=== PATIENT | female | born 1975 | race Caucasian/White ===

== ENCOUNTER 2021-09-01 10:50 | Emergency (ER) | payer BC, SELFPAY ==
[2021-09-01 10:59] VITALS: BP 144/92; PULSE 71; RESP 12; TEMP 36.6; O2SAT 98; BMI 25.6
--- NOTE | 2021-09-01 11:17 | W.ED.GENADLT ---
HPI - General Adult General: Chief complaint: Dental/Oral Stated complaint: Tooth pain Time Seen by Provider: 09/01/21 11:02 History of Present Illness: Patient is a 45-year-old female with a history of tooth infection from 1 day who started on antibiotics amoxicillin presenting to the emergency room with complaints of right-sided facial swelling. Patient tells me that she has a dental cavity that she had to be removed on Saturday. Patient called her primary care provider was prescribed amoxicillin 500 mg TID on Saturday. Since then, patient has been compliant with her medicine. However, patient noticed the right upper face has become swollen. Patient denies any fever or chills, trismus, neck swelling, difficulty range of motion of the neck, shortness of breath, or drooling or hoarseness of voice. Onset:5 days ago Duration:5 days Location:home Severity:moderate Associated symptoms: Deny chest pain, dyspnea, nausea, rash, palpitations or vomiting Review of Systems Const: Denies: fever(s) or chills Eyes: Denies: change in vision ENMT: Reports: mouth pain (+R upper dental pain) and other (+R sided facial swelling) Card: Denies: chest pain or palpitations Resp: Denies: dyspnea or non-productive cough GI: Denies: abdominal pain, nausea, vomiting or diarrhea : Denies: dysuria Musc: Denies: extremity pain Skin/Breast: Denies: rash or new lesions Neuro: Denies: weakness in extremities Psych: Reports: other (Normal mood) Ramiro/Lymph: Denies: easy bruising PFS ED PFSH: Medical History Dental cavity Social History Smoking and tobacco status: never smoked Alcohol intake: never Substance/Drug Use: never Physical Exam Const: COMMON NORMALS: alert HENMT: COMMON NORMALS: atraumatic HEAD & SCALP: atraumatic MOUTH: moist mucous membranes not abnormal OTHER: +tooth #6 tenderness to palpation with periapical swelling and gumline swelling, + Right-sided maxillary facial swelling without palpable fluctuanceor any periorbital involvement Eye: COMMON NORMALS: EOMs intact bilaterally and conjunctivae normal CONJUNCTIVA: Yes conjunctivae normal Neck/C-Spine: COMMON NORMALS: full ROM and supple Resp: COMMON NORMALS: normal respiratory effort and clear to auscultation bilaterally AUSCULTATION: clear to auscultation bilaterally Cardio: COMMON NORMALS: regular rate RATE: regular rate GI: COMMON NORMALS: Soft to palpation and non-tender PALPATION: Yes Soft to palpation Extremity: COMMON NORMALS: full ROM Neuro: SENSORIUM/ORIENTATION: Yes alert MOTOR EXAM: No Abnormal motor strength present and Other motor observations present (no focal motor deficits) Psych: COMMON NORMALS: speech normal SPEECH: Yes normal speech MOOD & AFFECT: Yes euthymic mood Course Vital Signs: Vital signs: Vital Signs Temperature 98 F 09/01/21 10:59 Pulse Rate 72 09/01/21 14:18 Respiratory Rate 16 09/01/21 14:18 Blood Pressure 136/82 09/01/21 14:18 Pulse Oximetry 97 09/01/21 14:18 MDM - General Adult Medical Decision Making 45-year-old female presenting to the emergency room for concerns of facial swelling from prior odontogenic infection. On physical exam, patient has tooth #6 tenderness palpation with periapical swelling and pain. Patient was noted to have right-sided maxillary facial swelling. No periorbital involvement. White count of 9.9 today. Patient received Unasyn in the emergency room. Patient has no palpable facial fluctuance at this time amenable to I&D. She tells me that tomorrow she will fly back to [place]. I gave patient strict return to the ER if she has any signs of periorbital involvement, oral airway involvement, worsening swelling, pain vision changes, new neuroloigical findings, headache, fever or chills, or any new or c oncerning complaints. Patient reassures me that she will follow-up with a dentist and her primary care provider when she leaves to go back to [place]. Rx augmentin BID for dental infection, clindamycin TID x 10 days, percocet PRN pain Disposition: Discharge. Patient counseled regarding diagnostic impression, treatment plan. Patient given ED strict return precautions to return for continuation, worsening, or development of new symptoms. Instructed to f/u w/ dentist and primary care regarding symptoms today. Patient verbalized understanding. Lab Data : 09/01/21 12:50 09/01/21 12:50 Laboratory Results WBC 9.9 10^3/uL (4.0-10.0) 09/01/21 12:50 RBC 4.90 10^6/uL (4.1-5.3) 09/01/21 12:50 Hgb 14.6 g/dL (11.5-15.3) 09/01/21 12:50 Hct 43.0 % (37.0-47.0) 09/01/21 12:50 MCV 87.8 fl (81-99) 09/01/21 12:50 MCH 29.8 pg (28.0-34.0) 09/01/21 12:50 MCHC 34.0 g/dL (30.0-36.0) 09/01/21 12:50 RDW 12.4 % (12.1-15.1) 09/01/21 12:50 Plt Count 289 10^3/cmm (130-400) 09/01/21 12:50 MPV 10.4 fL (7.4-10.4) 09/01/21 12:50 Neut % (Auto) 74.7 % 09/01/21 12:50 Lymph % (Auto) 16.3 % 09/01/21 12:50 Bertie % (Auto) 7.4 % 09/01/21 12:50 Eos % (Auto) 0.6 % 09/01/21 12:50 Baso % (Auto) 0.8 % 09/01/21 12:50 Neut # (Auto) 7.41 10^3/uL (1.8-7.7) 09/01/21 12:50 Lymph # (Auto) 1.6 10^3/uL (0.8-4.8) 09/01/21 12:50 Bertie # (Auto) 0.7 10^3/uL (0.2-0.9) 09/01/21 12:50 Eos # (Auto) 0.1 10^3/uL (0.0-0.8) 09/01/21 12:50 Baso # (Auto) 0.1 10^3/uL (0.0-0.1) 09/01/21 12:50 Nucleated RBC % (auto) 0 % 09/01/21 12:50 Nucleated RBCs # 0.0 /100WBC 09/01/21 12:50 Sodium 139 mmol/L (136-145) 09/01/21 12:50 Potassium 3.9 mmol/L (3.5-5.1) 09/01/21 12:50 Chloride 102 mmol/L (98-107) 09/01/21 12:50 Carbon Dioxide 22 mmol/L (22-29) 09/01/21 12:50 Anion Gap 18.9 (5-19) 09/01/21 12:50 BUN 11 mg/dL (6-20) 09/01/21 12:50 Creatinine 0.9 mg/dL (0.5-0.9) 09/01/21 12:50 GFR Calculation 67.4 mL/min (90-130) L 09/01/21 12:50 Glucose 80 mg/dL (65-115) 09/01/21 12:50 Calculated Osmolality 286 mOsm/kg (285-295) 09/01/21 12:50 Calcium 9.9 mg/dL (8.5-10.5) 09/01/21 12:50 Discharge Plan Discharge Patient Disposition: Home Clinical Impression: Cellulitis, Dental abscess Condition: Stable Prescriptions: New amoxicillin-pot clavulanate 875-125 mg tablet 1 tab PO BID 10 Days Qty: 20 0RF clindamycin HCl 300 mg capsule 300 mg PO Q8H 10 Days Qty: 30 0RF Percocet 5-325 mg tablet 1 tab PO Q8H PRN (Reason: pain) Qty: 9 0RF No Action amoxicillin 500 mg Capsule 500 mg PO TID 0RF potassium chloride 10 mEq capsule, extended release 10 meq PO DAILY 0RF lisinopril 20 mg tablet 20 mg PO DAILY 0RF amlodipine 5 mg tablet 5 mg PO DAILY 0RF estradiol 1 mg tablet 1 mg PO DAILY 0RF cyanocobalamin (vitamin B-12) 1,000 mcg/mL solution 1,000 mcg IM Q30D 0RF hydrochlorothiazide 12.5 mg capsule 12.5 mg PO DAILY 0RF Vitamin C 100 mg Tablet 100 mg PO DAILY 0RF vitamin B complex Tablet 1 tab PO DAILY 0RF Vitamin D3 10 mcg (400 unit) Tablet 10 mcg PO DAILY 0RF Discharge Orders: Discharge ED (Routine); Ordered 09/01/21 Ordered By: Edwina Osman Referrals: Erick Sarabia [Primary Care Provider] - Discharge Diet: Advance as tolerated Discharge Activity: Increase activity as tolerated Patient Instructions: Dental Abscess (ED) Activity Restrictions/Additional Instructions: Come back to emergency room any fever chills, difficulty breathing, worsening facial swelling, periorbital swelling or any new concerning complaints. 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
[2021-09-01] MEDS: ampicillin-sulbactam 3 GM in sodium chloride 0.9% (plus) 50 ML IV (12:57)
[2021-09-01 12:58] LABS: Basophils # 0.1 10^3/uL (0.0-0.1); Basophils % 0.8 %; Eosinophils # 0.1 10^3/uL (0.0-0.8); Eosinophils % 0.6 %; Hemoglobin 14.6 g/dL (11.5-15.3); Lymphocytes # 1.6 10^3/uL (0.8-4.8); Lymphocytes % 16.3 %; Mean Corpuscular Hemoglobin 29.8 pg (28.0-34.0); Mean Corpuscular Volume 87.8 fl (81-99); Mean Platelet Volume 10.4 fL (7.4-10.4); Monocytes # 0.7 10^3/uL (0.2-0.9); Monocytes % 7.4 %; Neutrophils # 7.41 10^3/uL (1.8-7.7); Neutrophils % 74.7 %; Nucleated Red Blood Cells % 0 %; Platelet Count 289 10^3/cmm (130-400); Red Cell Distribution Width 12.4 % (12.1-15.1); White Blood Count 9.9 10^3/uL (4.0-10.0)
[2021-09-01 13:18] LABS: Anion Gap 18.9 (5-19); Blood Urea Nitrogen 11 mg/dL (6-20); Calcium 9.9 mg/dL (8.5-10.5); Carbon Dioxide 22 mmol/L (22-29); Chloride 102 mmol/L (98-107); Glomerular Filtration Rate 67.4 mL/min (90-130); Glucose 80 mg/dL (65-115); Osmolality Calculated 286 mOsm/kg (285-295); Potassium 3.9 mmol/L (3.5-5.1); Sodium 139 mmol/L (136-145)
[2021-09-01 14:15] VITALS: RESP 18; O2SAT 98
[2021-09-01] MEDS: oxyCODONE-APAP 5-325 mg Tablet 1 TAB PO (14:15)
[2021-09-01 14:18] VITALS: BP 136/82; PULSE 72; RESP 16; O2SAT 97
== END 2021-09-01 14:22 | disposition home or self-care (01) ==
PROVIDERS: Emergency Provider Emergency Medicine; PCP Physician Assistant Medical
DX: K12.2 Cellulitis and abscess of mouth (principal); K04.7 Periapical abscess without sinus
CPT/HCPCS: 80048; 85025; 96365; 99284; J0295

== ENCOUNTER 2023-05-09 12:28 | Outpatient (CLI) | payer OTHER, SELFPAY ==
--- NOTE | 2023-05-09 12:55 | MM_ITS ---
WS: [id number] BILATERAL 3D TOMOSYNTHESIS DIGITAL DIAGNOSTIC MAMMOGRAPHY WITH CAD CLINICAL INFORMATION: RIGHT BREAST MASS HISTORY: Palpable lump RIGHT COMPARISON: 2021 TECHNIQUE: Bilateral CC, MLO, and ML views. FINDINGS: The breasts are composed of heterogeneous fibroglandular density, which can limit the detection of sm all underlying mass lesions. Palpable marker overlying the RIGHT lower inner RIGHT breast. No definit e underlying parenchymal abnormalities. Ultrasound of this area is pending. LEFT breast is unchanged compared to previous. ULTRASOUND BREAST RIGHT TECHNIQUE: Ultrasound right breast focused area of concern. CLINICAL INFORMATION: RIGHT BREAST MASS FINDINGS: Ultrasound RIGHT breast at the 5 o'clock position in the area of interest. Normal underlying parenchy mal tissue. No cystic or solid lesions. No suspicious lesions to target for biopsy. IMPRESSION: MM/[place] [id number] BI-RADS: 2-Benign FOLLOW UP: 1 Year Follow-up Recommend return to annual screening mammography.
== END 2023-05-09 12:29 | disposition home or self-care (01) ==
PROVIDERS: PCP Physician Assistant Medical; Visit Provider Nurse Practitioner Family
DX: N63.10 Unspecified lump in the right breast, unspecified quadrant (principal); R92.321 Mammographic fibroglandular density, right breast
CPT/HCPCS: 76642; 77062; G0279

== ENCOUNTER 2023-08-11 21:32 | Emergency (ER) | payer OTHER, SELFPAY ==
[2023-08-11 21:49] VITALS: BP 141/88; PULSE 59; RESP 18; TEMP 36.6; O2SAT 100; BMI 24.4
--- NOTE | 2023-08-11 22:50 | W.ED.ABDPA2 ---
HPI - Abdominal Pain General: Chief Complaint: Abdominal Pain Stated Complaint: Rt Side Pain Time Seen by Provider: 08/11/23 22:46 History of Present Illness: 47-year-old female comes in today with complaints of right flank pain radiating around to the front abdomen starting about 3 hours prior to arrival. Patient states that she had eaten about 15 minutes before the pain started. Patient has a history of a hysterectomy and appendectomy. Patient does have alpha gal syndrome. Patient has a history of high blood pressure. Review of Systems General: Reports: 10 or more systems reviewed and unremarkable except in HPI and below GI: Reports: abdominal pain PFS ED PFSH: Medical History Dental cavity Social History Smoking and tobacco/nicotine status: never used tobacco/nicotine Alcohol intake: never Substance/Drug Use: never Physical Exam Const: COMMON NORMALS: alert HENMT: COMMON NORMALS: normocephalic HEAD & SCALP: normocephalic Neck/C-Spine: COMMON NORMALS: full ROM Resp: COMMON NORMALS: normal respiratory effort and clear to auscultation bilaterally AUSCULTATION: clear to auscultation bilaterally Cardio: COMMON NORMALS: regular rate and regular rhythm RATE: regular rate RHYTHM: regular rhythm GI: COMMON NORMALS: Soft to palpation PALPATION: Yes Soft to palpation and Yes Tenderness to palpation present (GI) Details: RUQ : COMMON NORMALS: Yes no CVA tenderness BLADDER/KIDNEY EXAM: Yes no CVA tenderness Back/Pelvis: COMMON NORMALS: no CVA tenderness Extremity: COMMON NORMALS: normal to inspection Neuro: SENSORIUM/ORIENTATION: Yes alert Psych: COMMON NORMALS: cooperative Skin: COMMON NORMALS: turgor normal GENERAL SKIN EXAM: turgor normal Course Vital Signs: Vital signs: Vital Signs Temperature 97.9 F 08/11/23 21:49 Pulse Rate 59 L 08/11/23 21:49 Respiratory Rate 18 08/11/23 21:49 Blood Pressure 141/88 08/11/23 21:49 Pulse Oximetry 100 08/11/23 21:49 Oxygen Delivery Me thod Room Air 08/11/23 21:49 MDM - Abdominal Pain Medical Decision Making 47-year-old female comes in today with complaints of right upper quadrant abdominal pain radiating around to the back. On exam pupils are equal and reactive. Lungs are clear to auscultation. Abdomen soft nontender. Skin is warm and dry. Vital signs are normal except for some elevated blood pressure. Patient appears in pain. Differential diagnosis includes but not limited to pancreatitis, cholecystitis, gastritis, constipation, renal colic, gastroenteritis. CBC had a white count of 5.24, sodium was 142, potassium 3.1, urine had positive nitrates increased white blood cells and positive bacteria. CT of the abdomen pelvis was unremarkable. Reviewed exam with patient with recommendations for treatment for kidney infection. Encourage fluids rest and follow-up with primary care for further instructions. Return to ED for new concerns. Patient reported understanding agreed to plan. Lab Data 08/11/23 22:44 08/11/23 22:44 Labs/Radiology: Radiology Impressions Abdomen/Pelvis CT 08/11/23 22:52 IMPRESSION: No acute findings. Laboratory Results WBC 5.24 10^3/uL (3.29-11.43) 08/11/23 22:44 RBC 4.17 10^6/uL (3.85-5.65) 08/11/23 22:44 Hgb 13.00 g/dL (11.27-16.99) 08/11/23 22:44 Hct 37.6 % (36-47) 08/11/23 22:44 MCV 90.2 fl (85-98) 08/11/23 22:44 MCH 31.2 pg (27-33) 08/11/23 22:44 MCHC 34.6 g/dL (30-55) 08/11/23 22:44 RDW 12.3 % (12.1-15.1) 08/11/23 22:44 Plt Count 242 10^3/cmm (157-399) 08/11/23 22:44 MPV 11.0 fL (7.4-10.4) H 08/11/23 22:44 Neut % (Auto) 42.8 % 08/11/23 22:44 Lymph % (Auto) 45.6 % 08/11/23 22:44 [place] % (Auto) 8.6 % 08/11/23 22:44 Eos % (Auto) 1.5 % 08/11/23 22:44 Baso % (Auto) 1.3 % 05/26/24 22:44 Neut # (Auto) 2.24 10^3/uL (1.8-7.7) 08/11/23 22:44 Lymph # (Auto) 2.4 10^3/uL (0.8-4.8) 08/11/23 22:44 [place] # (Auto) 0.5 10^3/uL (0.2-0.9) 08/11/23 22:44 Eos # (Auto) 0.1 10^3/uL (0.0-0.8) 08/11/23 22:44 Baso # (Auto) 0.1 10^3/uL (0.0-0.1) 08/11/23:44 Nucleated RBC % (auto) 0 % 08/11/23: Nucleated RBCs # 0.0 /100WBC 08/11/23 22:44 Sodium 142 mmol/L (136-145) 08/11/23 22:44 Potassium 3.1 mmol/L (3.5-5.1) L 08/11/23 22:44 Chloride 108 mmol/L (98-107) H 08/11/23 22:44 Carbon Dioxide 22 mmol/L (22-29) 08/11/23 22:44 Anion Gap 15.1 (5-19) 08/11/23 22:44 BUN 12 mg/dL (6-20) 08/11/23 22:44 Creatinine 0.8 mg/dL (0.5-0.9) 08/11/23 22:44 GFR Calculation 76.6 mL/min (90-130) L 08/11/23 22:44 Glucose 75 mg/dL (65-115) 08/11/23 22:44 Calculated Osmolality 292 mOsm/kg (285-295) 08/11/23 22:44 Calcium 8.9 mg/dL (8.5-10.5) 08/11/23 22:44 Total Bilirubin 0.2 mg/dL (0.15-1.2) 08/11/23 22:44 AST 16 U/L (0-32) 08/11/23 22:44 ALT 13 U/L (0-33) 08/11/23 22:44 Alkaline Phosphatase 79 U/L (35-105) 08/11/23 22:44 Total Protein 6.9 g/dL (6.6-8.7) 08/11/23 22:44 Albumin 4.0 g/dL (3.5-5.2) 08/11/23 22:44 Globulin 2.9 g/dL (1.3-4.6) 08/11/23 22:44 Lipase 49 U/L (13-60) 08/11/23 22:44 Urine Color [place] (Yellow) A 08/12/23 00:25 Urine Appearance Clear (CLEAR) 08/12/23 00:25 Urine pH 9 (5-7) H 08/12/23 00:25 Ur Specific [place] 1.010 (1.005-1.030) 08/12/23 00:25 Urine Protein 1+ (Negative) H 08/12/23 00:25 Urine Glucose (UA) Norm (Normal) 08/12/23 00:25 Urine Ketones Negative (Negative) 08/12/23 00:25 Urine Blood Neg (Negative) 08/12/23 00:25 Urine Nitrate Positive (Negative) H 08/12/23 00:25 Urine Bilirubin 1+ (Negative) H 08/12/23 00:25 Prot Sulfosalicylic Acd Positive (Negative) 08/12/23 00:25 Urine Urobilinogen 1 mg/dL (Negative) H 08/12/23 00:25 Ur Leukocyte Esterase Trace (Negative) H 08/12/23 00:25 Urine RBC 0-4 /hpf (0-2) H 08/12/23 00:25 Urine WBC 5-10 /hpf (0-5) H 08/12/23 00:25 Ur Squamous Epith Cells 0-4 /hpf (0-5) H 08/12/23 00:25 Amorphous Sediment Trace /hpf 08/12/23 00:25 Urine Bacteria 1+ /hpf (NONE) H 08/12/23 00:25 Urine Mucus Trace /hpf 08/12/23 00:25 All radiology interpretation(s) finalized by discharge Discharge Plan Discharge Patient Disposition: Home Clinical Impression: Infection, kidney Condition: Stable Prescriptions: New cefdinir 250 mg/5 mL suspension for reconstitution 300 mg PO BID 5 Days Qty: 60 0RF No Action amoxicillin 500 mg Capsule 500 mg PO TID potassium chloride 10 mEq capsule, extended release 10 meq PO DAILY lisinopril 20 mg tablet 20 mg PO DAILY amlodipine 5 mg tablet 5 mg PO DAILY estradiol 1 mg tablet 1 mg PO DAILY cyanocobalamin (vitamin B-12) 1,000 mcg/mL solution 1,000 mcg IM Q30D hydrochlorothiazide 12.5 mg capsule 12.5 mg PO DAILY Vitamin C 100 mg Tablet 100 mg PO DAILY vitamin B complex Tablet 1 tab PO DAILY Vitamin D3 10 mcg (400 unit) Tablet 10 mcg PO DAILY Percocet 5-325 mg tablet 1 tab PO Q8H PRN (Reason: pain) Qty: 9 0RF Discharge Orders: Discharge ED (Routine); Ordered 08/12/23 Ordered By: Alexsander Ramachandran Referrals: Joellen Yuan NP [Primary Care Provider] - Discharge Diet: Usual diet Discharge Activity: Increase activity as tolerated Patient Instructions: Kidney Infection (ED) Activity Restrictions/Additional Instructions: Drink plenty water and fluids. Activity as tolerated. Take antibiotics as directed. Follow-up with primary care for further instructions. 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
[2023-08-11 22:52] LABS: Basophils # 0.1 10^3/uL (0.0-0.1); Basophils % 1.3 %; Eosinophils # 0.1 10^3/uL (0.0-0.8); Eosinophils % 1.5 %; Hematocrit 37.6 % (36-47); Lymphocytes # 2.4 10^3/uL (0.8-4.8); Lymphocytes % 45.6 %; Mean Corpuscular HGB Conc 34.6 g/dL (30-55); Mean Corpuscular Hemoglobin 31.2 pg (27-33); Mean Corpuscular Volume 90.2 fl (85-98); Monocytes # 0.5 10^3/uL (0.2-0.9); Monocytes % 8.6 %; Neutrophils # 2.24 10^3/uL (1.8-7.7); Neutrophils % 42.8 %; Nucleated Red Blood Cells % 0 %; Platelet Count 242 10^3/cmm (157-399); Red Blood Count 4.17 10^6/uL (3.85-5.65); Red Cell Distribution Width 12.3 % (12.1-15.1); White Blood Count 5.24 10^3/uL (3.29-11.43)
--- NOTE | 2023-08-11 22:52 | CTR_ITS ---
PROCEDURE INFORMATION: Exam: CT Abdomen And Pelvis With Contrast Exam date and time: 08/12/2023 12:04 AM Age: 47 years old Clinical indication: Abdominal pain; Localized; Right; Prior surgery; Surgery date: 6+ months; Surgery type: Appy. Hysterectomy. Patient HX: C/O RT sided abd pain with nausea; Additional info: Abd pain, ruq, RT flank TECHNIQUE: Imaging protocol: Computed tomography of the abdomen and pelvis with contrast. Radiation optimization: All CT scans at this facility use at least one of these dose optimization techniques: automated exposure control; mA and/or kV adjustment per patient size (includes targeted exams where dose is matched to clinical indication); or iterative reconstruction. Contrast material: OMNI 350; Contrast volume: 100 ml; Contrast route: INTRAVENOUS (IV); COMPARISON: No relevant prior studies available. RADIATION DOSE METRICS: Total DLP (mGy-cm): 404.82 FINDINGS: Liver: Normal. No mass. Gallbladder and bile ducts: Normal. No calcified stones. No ductal dilation. Pancreas: Normal. No ductal dilation. Spleen: Normal. No splenomegaly. Adrenal glands: Normal enhancement pattern. No mass. It for stones. 8 mm diameter simple cyst medial interpolar left kidney. No specific follow-up imaging recommendations. Kidneys and ureters: Normal. No hydronephrosis. Stomach and bowel: Unremarkable. No obstruction. No mucosal thickening. Appendix: No evidence of appendicitis. Intraperitoneal space: Unremarkable. No free air. No significant fluid collection. Vasculature: Unremarkable. No abdominal aortic aneurysm. Lymph nodes: Unremarkable. No enlarged lymph nodes. Urinary bladder: Unremarkable as visualized. Reproductive: Hysterectomy. Bones/joints: Unremarkable. No acute fracture. Soft tissues: Unremarkable. CT/CT abdomen pelvis w con* [id number] IMPRESSION: No acute findings.
[2023-08-11 23:08] LABS: Alanine Aminotransferase 13 U/L (0-33); Alkaline Phosphatase 79 U/L (35-105); Anion Gap 15.1 (5-19); Aspartate Amino Transferase 16 U/L (0-32); Blood Urea Nitrogen 12 mg/dL (6-20); Calcium 8.9 mg/dL (8.5-10.5); Carbon Dioxide 22 mmol/L (22-29); Chloride 108 mmol/L (98-107); Creatinine Clr Calc Pharmacy 82.6411; Globulin 2.9 g/dL (1.3-4.6); Glomerular Filtration Rate 76.6 mL/min (90-130); Glucose 75 mg/dL (65-115); Lipase 49 U/L (13-60); Osmolality Calculated 292 mOsm/kg (285-295); Potassium 3.1 mmol/L (3.5-5.1); Sodium 142 mmol/L (136-145); Total Bilirubin 0.2 mg/dL (0.15-1.2); Total Protein 6.9 g/dL (6.6-8.7)
[2023-08-11] MEDS: ketorolac 30 mg/mL INJ 15 MG IVP (23:10)
[2023-08-11] MEDS: sodium chloride 0.9% 1,000 ML 999 ML IV (23:11)
[2023-08-11] MEDS: ondansetron 2 mg/ML SDV 2 mL 4 MG IVP (23:11)
[2023-08-12] MEDS: iohexol 350 mg/mL 500 mL Btl (per mL) IV (00:03)
[2023-08-12 01:20] LABS: Add Urine Microscopic? YES; Amorphous Sediment Urine TRACE /hpf; Bacteria Urine 1+ /hpf; Bilirubin Urine 1+ (Negative); Blood Urine Neg (Negative); Glucose Urine UA Norm (Normal); Ketones Urine Negative (Negative); Leukocyte Esterase Urine Trace (Negative); Mucus Urine TRACE /hpf; Nitrate Urine Positive (Negative); Protein Urine 1+ (Negative); RBC Urine 0-4 /hpf (0-2); Squamous Epithelial Cell Urine 0-4 /hpf (0-5); Sulfosalicylic Acid Urine Positive (Negative); Urine Appearance Clear (CLEAR); Urine Color Orange (Yellow); Urobilinogen Urine 1 mg/dL (Negative); pH Urine 9 (5-7)
[2023-08-12] MEDS: cefTRIAXone 1,000 MG in sodium chloride 0.9% (plus) 50 ML 100 MG IV (01:44)
[2023-08-12 02:00] VITALS: BP 147/92; PULSE 54; O2SAT 99
[2023-08-12 02:15] VITALS: BP 147/92; PULSE 54; O2SAT 99
== END 2023-08-12 02:15 | disposition home or self-care (01) ==
PROVIDERS: Emergency Medicine; Emergency Provider Nurse Practitioner Family; PCP Nurse Practitioner Family
DX: N15.9 Renal tubulo-interstitial disease, unspecified (principal)
CPT/HCPCS: 36415; 74177; 80053; 81001; 83690; 85025; 96361; 96374; 96375; 99285; J0696; J1885; J2405; J7030; Q9967

== ENCOUNTER 2023-09-22 17:35 | Emergency (ER) | payer OTHER, SELFPAY ==
[2023-09-22 17:50] VITALS: BP 134/92; PULSE 85; RESP 14; TEMP 36.6; O2SAT 98
--- NOTE | 2023-09-22 18:11 | XRR_ITS ---
PROCEDURE INFORMATION: Exam: XR Thoracic Spine Exam date and time: 09/22/2023 6:15 PM Age: 47 years old Clinical indication: Injury or trauma; Patient HX: Lt ankle/mid/low back/pelvic pain post fall TECHNIQUE: Imaging protocol: Radiologic exam of the thoracic spine. Views: 3 views. COMPARISON: CR XR lumbar spine 2-3V* [id number] 09/22/2023 6:15 PM FINDINGS: Bones/joints: Vertebral heights and alignments are grossly maintained without evidence of acute fracture or subluxation. Detailed evaluation is limited by overlapping structures. Pedicles are grossly symmetric. Soft tissues: Grossly unremarkable. XR/XR thoracic spine 3V* [id number] IMPRESSION: 1. No evidence of fracture or subluxation of the thoracic spine. If there is ongoing clinical concern, consider correlation with CT.
--- NOTE | 2023-09-22 18:11 | XRR_ITS ---
PROCEDURE INFORMATION: Exam: XR Pelvis Exam date and time: 09/22/2023 6:15 PM Age: 47 years old Clinical indication: Injury or trauma; Patient HX: -lt ankle/mid/low back/pelvic pain post fall; Additional info: -lt ankle/mid/low back/pelvic pain post fall TECHNIQUE: Imaging protocol: Radiologic exam of the pelvis. Views: 1 or 2 view. COMPARISON: CT abdomen pelvis w con* [id number] 08/12/2023 12:04 AM FINDINGS: Bones/joints: Pelvic ring and both hips are grossly intact without evidence of fracture. Sacrum and coccyx are partially obscured by bowel gas/stool. Soft tissues: Grossly unremarkable. XR/XR pelvis 1-2V* [id number] IMPRESSION: 1. Pelvic ring is grossly intact.
--- NOTE | 2023-09-22 18:11 | XRR_ITS ---
PROCEDURE INFORMATION: Exam: XR Lumbosacral Spine Exam date and time: 09/22/2023 6:15 PM Age: 47 years old Clinical indication: Injury or trauma; Patient HX: -lt ankle/mid/low back/pelvic pain post fall; Additional info: -lt ankle/mid/low back/pelvic pain post fall TECHNIQUE: Imaging protocol: Radiologic exam of the lumbosacral spine. Views: 2 or 3 views. COMPARISON: CR XR pelvis 1-2V* [id number] 09/22/2023 6:15 PM FINDINGS: Bones/joints: No evidence of acute fracture or subluxation. Mild-moderate multilevel spondylosis of the lumbar spine with facet arthrosis and osteophytosis. The sacrum and coccyx are partially obscured by bowel gas/stool. Soft tissues: Grossly unremarkable. XR/XR lumbar spine 2-3V* [id number] IMPRESSION: 1. No evidence of acute fracture or subluxation of the lumbar spine. If there is ongoing clinical concern, consider correlation with CT.
--- NOTE | 2023-09-22 18:11 | XRR_ITS ---
PROCEDURE INFORMATION: Exam: XR Left Ankle Exam date and time: 09/22/2023 6:15 PM Age: 47 years old Clinical indication: Injury or trauma; Patient HX: Lt ankle/mid/low back/pelvic pain post fall TECHNIQUE: Imaging protocol: Radiologic exam of the left ankle. Views: 3 or more views. COMPARISON: No relevant prior studies available. FINDINGS: Bones/joints: Ankle mortise is intact without evidence of acute fracture or subluxation. Soft tissues: No gross soft tissue abnormality. XR/XR ankle LT min 3V* [id number] IMPRESSION: 1. No evidence of acute fracture or subluxation.
--- NOTE | 2023-09-22 18:15 | ED_ITS ---
HPI - Back Pain/Injury General: Chief Complaint: Back Pain/Injury Stated Complaint: fall/ low back pain Time Seen by Provider: 09/22/23 17:56 History of Present Illness: 47-year-old female with a reported fall on the stairs on Saturday. Patient reports persistent mid to low back pain. Patient also reports pain in the pelvis and left ankle. Patient appears in mild to moderate pain. Respirations are even. Patient takes hormone replacement therapy, and vitamin D. Patient reports no chronic medical problems. Review of Systems General: Reports: 10 or more systems reviewed and unremarkable except in HPI and below Musc: Reports: back pain [facility] ED PFSH: Medical History Dental cavity Social History Smoking and tobacco/nicotine status: never used tobacco/nicotine Alcohol intake: never Substance/Drug Use: never Physical Exam Const: COMMON NORMALS: alert HENMT: COMMON NORMALS: normocephalic HEAD & SCALP: normocephalic Neck/C-Spine: COMMON NORMALS: full ROM Chest: COMMONS NORMALS: normal inspection of the chest Resp: COMMON NORMALS: normal respiratory effort and clear to auscultation bilaterally AUSCULTATION: clear to auscultation bilaterally Cardio: COMMON NORMALS: regular rate and regular rhythm RATE: regular rate RHYTHM: regular rhythm GI: COMMON NORMALS: non-tender Back/Pelvis: THORACIC SPINE/UPPER BACK: Yes thoracic spinal tenderness T-spine tenderness location: T10 (Approximately) LUMBAR SPINE/LOWER BACK: Yes lumbar spinal tenderness Lumbar spinal tenderness location: L1 and L4 Neuro: SENSORIUM/ORIENTATION: Yes alert Skin: COMMON NORMALS: no rashes or lesions noted GENERAL SKIN EXAM: no rashes or lesions noted Course Vital Signs: Vital signs: Vital Signs Temperature 97.9 F 09/22/23 17:50 Pulse Rate 79 09/22/23 19:35 Respiratory Rate 16 09/22/23 19:35 Blood Pressure 126/84 09/22/23 19:35 Pulse Oximetry 98 09/22/23 19:35 MDM - Back Pain/Injury Medical Decision Making 47-year-old female comes in today with back pain, pelvis pain, and left ankle pain. Patient follow-up blood the stairs. Still when she slipped. Patient is weightbearing to the ankle. Patient reports most of her pain is in her mid back. Patient has tenderness along the upper lumbar and thoracic spine along with the lower lumbar. Differential diagnosis includes fracture, intervertebral disc disease, facet arthropathy, contusion. Patient was given 30 mg of ketorolac IM with improvement of symptoms pain. X-rays of the ankle, pelvis, lumbar spine, and thoracic spine were negative for any acute fractures. Reviewed exam with patient with recommendations for treatment for back injury. Patient reported understanding agreed to plan. Labs Radiology Impressions Ankle X-Ray 09/22/23 18:11 IMPRESSION: 1. No evidence of acute fracture or subluxation. Lumbar Spine X-Ray 09/22/23 18:11 IMPRESSION: 1. No evidence of acute fracture or subluxation of the lumbar spine. If there is ongoing clinical concern, consider correlation with CT. Pelvis X-Ray 09/22/23 18:11 IMPRESSION: 1. Pelvic ring is grossly intact. Thoracic Spine X-Ray 09/22/23 18:11 IMPRESSION: 1. No evidence of fracture or subluxation of the thoracic spine. If there is ongoing clinical concern, consider correlation with CT. All radiology interpretation(s) finalized by discharge Discharge Plan Discharge Patient Disposition: Home Clinical Impression: Accidental fall on or from other stairs or steps Back pain Qualifiers: Back pain location: back pain in unspecified location Chronicity: acute Back pain laterality: unspecified Qualified Code(s): M54.9 - Dorsalgia, unspecified Condition: Stable Prescriptions: New ketorolac 10 mg tablet 10 mg PO Q6H PRN (Reason: pain) 5 Days Qty: 14 0RF cyclobenzaprine 5 mg tablet 5 mg PO TID PRN (Reason: muscle spasm) Qty: 14 0RF No Action amoxicillin 500 mg Capsule 500 mg PO TID potassium chloride 10 mEq capsule, extended release 10 meq PO DAILY lisinopril 20 mg tablet 20 mg PO DAILY amlodipine 5 mg tablet 5 mg PO DAILY estradiol 1 mg tablet 1 mg PO DAILY cyanocobalamin (vitamin B-12) 1,000 mcg/mL solution 1,000 mcg IM Q30D hydrochlorothiazide 12.5 mg capsule 12.5 mg PO DAILY Vitamin C 100 mg Tablet 100 mg PO DAILY vitamin B complex Tablet 1 tab PO DAILY Vitamin D3 10 mcg (400 unit) Tablet 10 mcg PO DAILY Percocet 5-325 mg tablet 1 tab PO Q8H PRN (Reason: pain) Qty: 9 0RF Discharge Orders: Discharge ED (Routine); Ordered 09/22/23 Ordered By: Alexsander Ramachandran Referrals: Joellen Yuan NP [Primary Care Provider] - Discharge Diet: Usual diet Discharge Activity: Increase activity as tolerated Patient Instructions: Back Pain (ED) Activity Restrictions/Additional Instructions: Activity as tolerated. Gentle stretching and range of motion exercises. Use ice or heat to help with pain. Take ketorolac 10 mg every 6 hours as needed for pain. Do not use ibuprofen or naproxen with ketorolac. You may however use acetaminophen for further pain relief. Use cyclobenzaprine as needed for muscle spasms. Follow-up with primary care for further instructions for persistent symptoms. Return to ED for new concerns. Coding Level of Care Code ED Allied Health Instructor for Alonso Cheung
[2023-09-22] MEDS: ketorolac 30 mg/mL INJ IM (19:00)
[2023-09-22 19:35] VITALS: BP 126/84; PULSE 79; RESP 16; O2SAT 98
== END 2023-09-22 19:36 | disposition home or self-care (01) ==
PROVIDERS: Emergency Provider Nurse Practitioner Family; PCP Nurse Practitioner Family
DX: M54.50 Low back pain, unspecified (principal); W10.8XXA Fall (on) (from) other stairs and steps, initial encounter
CPT/HCPCS: 72072; 72100; 72170; 73610; 96372; 99284; J1885

== ENCOUNTER 2024-05-22 10:33 | Outpatient (CLI) | payer BC, SELFPAY ==
--- NOTE | 2024-05-22 10:35 | MM_ITS ---
WS: [id number] BILATERAL SCREENING DIGITAL TOMOSYNTHESIS MAMMOGRAM WITH CAD HISTORY: SCREENING COMPARISON: 05/09/2023, 01/05/2022 Bilateral CC and MLO views with tomosynthesis and synthetic mammography submitted. Computer aided detection analyzed. Breast composition: The breasts are heterogeneously dense, which may obscure small masses. No suspicious masses, microcalcifications or architectural distortion. MM/MM scr BI tomosynthesis [id number] IMPRESSION: BI-RADS: 1 - Negative FOLLOW UP: 1 Year Follow-up
== END 2024-05-22 10:34 | disposition home or self-care (01) ==
PROVIDERS: PCP Nurse Practitioner Family; Visit Provider Nurse Practitioner
DX: Z12.31 Encounter for screening mammogram for malignant neoplasm of breast (principal); R92.333 Mammographic heterogeneous density, bilateral breasts
CPT/HCPCS: 77063; 77067

== ENCOUNTER → 2024-07-02 07:55 | Outpatient (BNVA) | payer BC, SELFPAY | PROVIDERS: PCP Nurse Practitioner Family; Visit Provider Orthopaedic Surgery | DX: S63.501A Unspecified sprain of right wrist, initial encounter (principal); X58.XXXA Exposure to other specified factors, initial encounter | CPT/HCPCS: 73110 ==

== ENCOUNTER 2024-07-02 08:25 | Outpatient (CLI) | payer BC, SELFPAY | END 2024-07-02 08:26 | disposition home or self-care (01) | LOC: SOT 08:26 | PROVIDERS: PCP Nurse Practitioner Family; Visit Provider Orthopaedic Surgery | DX: Z46.89 Encounter for fitting and adjustment of other specified devices (principal); M25.531 Pain in right wrist | CPT/HCPCS: L3982 ==

== ENCOUNTER → 2024-07-15 08:58 | Outpatient (BNVA) | payer BC, SELFPAY | PROVIDERS: PCP Nurse Practitioner Family; Visit Provider Specialist | DX: M17.12 Unilateral primary osteoarthritis, left knee (principal); S83.207A Unspecified tear of unspecified meniscus, current injury, left knee, initial encounter; X58.XXXA Exposure to other specified factors, initial encounter; S63.501A Unspecified sprain of right wrist, initial encounter | CPT/HCPCS: 73560; 73565 ==

== ENCOUNTER → 2024-07-28 08:25 | Outpatient (BNVA) | payer BC, SELFPAY | PROVIDERS: PCP Nurse Practitioner Family; Visit Provider Orthopaedic Surgery | DX: S63.501A Unspecified sprain of right wrist, initial encounter (principal); X58.XXXA Exposure to other specified factors, initial encounter | CPT/HCPCS: 73110 ==

== ENCOUNTER 2024-07-31 09:19 | Outpatient (CLI) | payer BC, SELFPAY ==
--- NOTE | 2024-07-31 10:15 | MRR_ITS ---
PROCEDURE INFORMATION: Exam: MR Left Lower Extremity Joint Without Contrast, Knee Exam date and time: 07/31/2024 9:59 AM Age: 48 years old Clinical indication: Prior surgery; Surgery date: 6+ months; Surgery type: History of left knee surgery; History of tomeka-schlatter per patient/chronic left knee pain/swelling/; Additional info: Pain, positive mcmurrays TECHNIQUE: Imaging protocol: Magnetic resonance imaging of the left lower extremity joint without contrast. Exam focused on the knee. COMPARISON: CR XR knees AP WB w LT lmt ORTH 07/15/2024 9:01 AM FINDINGS: Bones/joints: No acute fracture or dislocation. Patellofemoral articulation shows intact joint space and trochlear cartilage, with mild chondromalacia patella. Medial and lateral compartment joint spaces and articular cartilages are preserved. Question of subtle patellar osteitis, versus artifact. Fat pads of knee: Hoffa's fat appears somewhat hypertrophied and mildly edematous; clinically correlate for possible Hoffa's fat pad impingement syndrome. Medial meniscus: Unremarkable. No tear. Lateral meniscus: Unremarkable. No tear. Anterior cruciate ligament: Unremarkable. No tear. Posterior cruciate ligament: Unremarkable. No tear. Medial capsule and supporting structures: Unremarkable. No tear. Lateral capsule and supporting structures: Unremarkable. No tear. 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 Soft tissues: Mild nonspecific prepatellar subcutaneous edema MR/MR knee LT wo con* [id number] IMPRESSION: 1. Hoffa's fat appears somewhat hypertrophied and mildly edematous; clinically correlate for possible Hoffa's fat pad impingement syndrome. 2. 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 3. Mild chondromalacia patella
== END 2024-07-31 09:20 | disposition home or self-care (01) ==
LOC: RAD 09:20
PROVIDERS: PCP Nurse Practitioner Family; Visit Provider Specialist
DX: S83.207A Unspecified tear of unspecified meniscus, current injury, left knee, initial encounter (principal); R93.6 Abnormal findings on diagnostic imaging of limbs; M67.864 Other specified disorders of tendon, left knee; M22.42 Chondromalacia patellae, left knee; R60.0 Localized edema; X58.XXXA Exposure to other specified factors, initial encounter
CPT/HCPCS: 73721

== ENCOUNTER 2024-11-17 20:01 | Outpatient (CLI) | payer BC, SELFPAY | END 2024-11-17 20:02 | disposition home or self-care (01) | LOC: SLEEP 20:03 | PROVIDERS: Visit Provider Internal Medicine Pulmonary Disease | DX: I49.9 Cardiac arrhythmia, unspecified (principal) | CPT/HCPCS: 95810 ==

== ENCOUNTER 2024-12-27 10:45 | Emergency (ER) | payer BC, SELFPAY ==
--- OUTSIDE RECORDS SUMMARY | 2024-12-27 10:49 | XMS_ITS | Encounter Summary ---
Author Organization [facility] Address [address] [place] [address] Care Team Providers Care Formula Weigher Name Role Phone Unavailable Primary Care Provider Unavailabl e Encounter Details Date Type Department Care Team (Late st Contact Info) Description 12/22/2024 External Device Data [facility]STRACTION Provider, Abstract NO ADDRESS ON FILE Social History Tobacco Use Types Packs/Day Years Used Date Smoking Tobacco: Former Cigarettes Smokeless Tobacco: Former Quit: 12/01/2013 Alcohol Use Standard Drinks/Week Comments No 0 (1 standard drink = 0.6 oz pur e alcohol) Feeling Safe Answer Date Recorded Are you in a relationship wi th someone who hurts you emotionally and/or physically? 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
--- OUTSIDE RECORDS SUMMARY | 2024-12-27 10:49 | XMS_ITS | Encounter Summary ---
Author Organization [facility] Address 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
--- OUTSIDE RECORDS SUMMARY | 2024-12-27 10:49 | XMS_ITS | Patient Health Record ---
Author Organization [facility] Address [address] [place] [address] Care Team Providers Care Teacher Emotionally Impaired Name Role Phone Rober Quang Primary Care Provider Unavailkatie e CAMILO LAURENT Unavailable [phone] Aretha Cabezas Unavailable Unavailable Allergies No Known Allergies Reason For Referral No Information Medications Medication SIG (Take, Route, Fr equency, Duration) Notes Start Date End Date Status B12 injection Active estradiol Active Potassium Alum Activ e amLODIPine Active lisinopril Active Problems Problem Type SNOMED Code ICD Code Onset Dates Problem Status W/U Status Risk Notes Problem Obstructive sleep apnea syndrome (disorder) (96465242) Obstructive sleep apnea (adult) (pediatric) (G47.33) Active confirmed Problem Essential hypertension (92183229) Essential (primary) hypertension (I10) Active confirmed Problem Gastroesophageal reflux disease (496335163) Gastroesophageal reflux disease (K21.9) Active confirmed Plan Of Treatment Pending Test Test Name Order Date home sleep study 01/19/2022 Insurance Providers Payer Name Payer Address Payer Phone Subscriber Number Group Number Insured Name Patient Relationship to Insured Coverage Start Date Coverage End Date [facility] [address] [address] [place] [address] [id number] Idania Gordillo Self - patient is the insured Medical (General) History Medical History History ICD Code Hypertension High Cholesterol GERD/Heartburn Surgical History Surgery Date(Month/Year) Tonsillectomy Orthodontia / Braces
--- OUTSIDE RECORDS SUMMARY | 2024-12-27 10:49 | XMS_ITS | Clinical Summary ---
Author Organization [facility] Address [address] [facility] Attn: Epic Prelude ADT YANELI BALDWIN [address] Care Team Providers Care Non Clinical Advisor Name Role Phone Unavailable Primary Care Provider Unavailabl e Allergies Active Allergy Reactions Criticality Noted Date Comments Alpha-Gal (Frdwzhsqw-Qagid-8,3-Gala ctose) Hives,Diarrhea,Abdominal Pain High 12/22/2022 Latex Anaphylaxis High 12/01/2013 Medications estradiol cypionate (DEPO-ESTRADIO L) 5 mg/mL Oil Inject 1 mL (5 mg) by intramuscular injection every 28 days. 1 mL 5 6 Active lisinopriL (PRINIVIL) 10 mg tablet Take 1 Tab (10 mg) by mouth daily.. 30 Tablet 0 5 Active Additional Information Patient taking differently: 20 mg DAILY, Reported on 05/22/2024 promethazine-d extromethorpha n (PHENERGAN-DM) 6.25-15 mg/5 mL syrup Take 5 mL by mouth every 6 hours as needed for Cough (and sinus). 120 mL 1 5 Active medroxyPROGEST ERone (DEPO-PROVERA) 150 mg/mL Syringe Inject 150 mg by intramuscular injection every 90 days. 5 Active ibuprofen (MOTRIN) 800 mg tablet Take 1 Tab (800 mg) by mouth every 8 hours as needed for Pain or Pain, Mild. 60 Tablet 5 5 Active cyanocobalamin (VITAMIN B-12) 1,000 mcg/mL Solution Inject 1 mL (1,000 mcg) by intramuscular injection every 30 days Inject 1ml IM monthly Last refill till seen. 1 mL 0 5 Active estradioL (ESTRACE) 1 mg tablet Take 1 mg by mouth daily. Active amLODIPine (NORVASC) 5 mg tablet Take 5 mg by mouth daily. Active hydroCHLOROthi azide (HYDRODIURIL) 12.5 mg tablet Take 12.5 mg by mouth daily. Active potassium chloride (KLOR-CON) 20 mEq Extended Release tablet Take 20 mEq by mouth daily. Active Encounters Date Type Department Care Team Description 12/22/2024 External Device Data [facility] ABSTRACTION Provider, Abstract 12/22/2024 External Device Data [facility] ABSTRACTION Provider, Abstract 11/17/2024 External Device Data [facility] ABSTRACTION Provider, Abstract 11/17/2024 External Device Data [facility] ABSTRACTION Provider, Abstract 11/11/2024 External Device Data [facility] ABSTRACTION Provider, Abstract 11/03/2024 External Device Data [facility] ABSTRACTION Provider, Abstract 10/21/2024 External Device Data [facility] ABSTRACTION Provider, Abstract from Last 3 Months Family History Medical History Relation Name Comments Healthy Mother Relation Name Status Comments Father Mother Alive Social History Tobacco Use Types Packs/Day Years Used Date Smoking Tobacco: Former Cigarettes Smokeless Tobacco: Former Quit: 12/01/2013 Tobacco Cessation:Counseling Given: Not Answered Alcohol Use Standard Drinks/Week Comments No 0 (1 standard drink = 0.6 oz pur e alcohol) Feeling Safe Answer Date Recorded Are you in a relationship wi th someone who hurts you emotionally and/or physically? 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 Gender Identity Not on file Sexual Orientation Not on file Last Filed Vital Signs Vital Sign Reading Time Taken Comments Blood Pressure 128/87 05/22/2024 8:00 PM INSTRUMENT TECHNICIAN Pulse 71 05/22/2024 8:00 PM INSTRUMENT TECHNICIAN Temperature 36.7 C (98 F) 05/22/2024 7:29 PM INSTRUMENT TECHNICIAN Respiratory Rate 18 05/22/2024 8:00 PM INSTRUMENT TECHNICIAN Oxygen Saturation 100% 05/22/2024 8:00 PM INSTRUMENT TECHNICIAN Inhaled Oxygen Concentration - - Weight 70.4 kg (155 lb 3.2 oz) 05/22/2024 7:29 P M INSTRUMENT TECHNICIAN Height 165.1 cm (5' 5 ) 05/22/2024 7:29 PM INSTRUMENT TECHNICIAN Body Mass Index 25.83 05/22/2024 7:29 PM INSTRUMENT TECHNICIAN Plan of Treatment Upcoming Encounters Date Type Department Care Team (Late st Contact Info) Description 01/01/2025 10:20 AM CDT Office Visit [facility] Rheumatology- Wilmer Stern [address] [place] [address] Sierra Macario MD [address] [place] [address] Health Maintenance Due Date Last Done Comments Pre-Diabetes and Diabetes Screening 1974 DTAP/TDAP/TD VACCINES (1 - Tdap) 1993 HEPATITIS B VACCINES (1 of 3 - 19+ 3-dose series) 1993 BREAST CANCER SCREENING 11/12/2015 11/11/2014, 11/11 COLORECTAL SCREENING 12/24/2019 Colorectal Cancer Screening 12/24/2019 FIT-DNA Q 3 years 12/24/2019 FIT/FOBT Q 1 year 12/24/2019 Flex Sig/CT Colonography Q 5 years 12/24/2019 Preventative Visit- Commercial 03/18/2024 INFLUENZA VACCINE (#1) 2024 ZOSTER VACCINE (1 of 2) 2024 Procedures Procedure Name Priority Date/Time Associated Diagnosis Comments MAMMO DIAGNOSTIC BILATERAL W OR WO CAD Routine 11/11/2014 12:00 AM CDT from Last 3 Months or Most Recently Relevant to Health Maintenance Results * MAMMO DIAGNOSTIC BILATERAL W OR WO CAD (11/11/2014 12:00 AM CDT) Anatomical Region Laterality Modality Breast Bilateral Other [facility] [place] MAMMO ORDERABLES Final Result from Last 3 Months or Most Recently Relevant to Health Maintenance Insurance [employer] ANTHJOYCELYN BLUE ACCESS
--- NOTE | 2024-12-27 10:51 | XRR_ITS ---
PROCEDURE INFORMATION: Exam: XR Left Foot Exam date and time: 12/27/2024 11:20 AM Age: 49 years old Clinical indication: Pain; Foot; Left; Additional info: Lt foot pain/swelling after fall; PT fell down stairs and caught lt 4th digit in banister TECHNIQUE: Imaging protocol: Radiologic exam of the left foot. Views: 3 or more views. COMPARISON: MR knee LT wo con* [id number] 07/31/2024 9:59 AM FINDINGS: Bones/joints: Acute fracture of the proximal phalanx of the 4th digit. It is oblique and minimally displaced, without definite intra-articular extension. Soft tissues: Normal. XR/XR foot LT min 3V* [id number] IMPRESSION: Fourth proximal phalanx fracture.
[2024-12-27 11:11] VITALS: BP 171/106; PULSE 75; TEMP 36.7; O2SAT 100; BMI 25.0
--- NOTE | 2024-12-27 11:41 | W.ED.EXTPRO ---
Documented by User: JERSEY Franks 12/27/24 11:47 HPI - Extremity Problem General: Chief complaint: Extremity Injury, Lower Stated complaint: L foot pain Time Seen by Provider: 12/27/24 11:09 Source: patient Mode of arrival: ambulatory Limitations: no limitations History of Present Illness: Patient is a 49-year-old female who presents the emergency department with left foot pain after a fall. States that she was walking up stairs, tripped and got her foot stuck on a banister and that her left fourth toe was bent sideways. States that it popped back in place spontaneously, but she has significant pain. Has been ambulatory though with antalgic gait. Reports the pain is radiating somewhat proximally, but does not report any ankle pain. Notes swelling to the left fourth digit of the foot. Has not take any medications prehospital. Denies pain medications at this time. MD Complaint: extremity pain Onset (ago): minute(s) Pain Consistency: constant Location: left and lower extremity (foot) Radiation: proximal Exacerbating factors: weight bearing and walking Associated symptoms: Deny chest pain, fever(s) or rash Related Data Home Medications ?Medication ?Instructions ?Recorded ?Confirmed amlodipine 5 mg tablet 5 mg PO DAILY 09/01/21 08/26/24 amoxicillin 500 mg capsule 500 mg PO TID 09/01/21 08/26/24 ascorbic acid (vitamin C) 100 mg 100 mg PO DAILY 09/01/21 08/26/24 tablet (Vitamin C) cholecalciferol (vitamin D3) 10 10 mcg PO DAILY 09/01/21 08/26/24 mcg (400 unit) tablet (Vitamin D3) cyanocobalamin (vitamin B-12) 1,000 mcg IM Q30D 09/01/21 08/26/24 1,000 mcg/mL injection solution estradiol 1 mg tablet 1 mg PO DAILY 09/01/21 08/26/24 hydrochlorothiazide 12.5 mg capsule 12.5 mg PO DAILY 09/01/21 08/26/24 lisinopril 20 mg tablet 20 mg PO DAILY 09/01/21 08/26/24 potassium chloride 10 mEq 10 meq PO DAILY 09/01/21 08/26/24 capsule,extended release vitamin B complex 1 tab PO DAILY 09/01/21 08/26/24 Previous Rx's ?Medication ?Instructions ?Recorded oxycodone-acetaminophen 5 mg-325 1 tab PO Q8H PRN pain #9 tabs 09/01/21 mg tablet (Percocet) cyclobenzaprine 5 mg tablet 5 mg PO TID PRN muscle spasm #14 09/22/23 tabs right wrist fast form brace #1 ea 07/02/24 Allergies Allergy/AdvReac Type Severity Reaction Status Date / Time Alpha-Gal Allergy ALGY-Anaphy Verified 12/27/24 11:16 (Pnzfrzsuz-Ofhfa-4,3-Gala laxis Latex, Natural Rubber Allergy ALGY-Anaphy Verified 12/27/24 11:16 laxis nitrofurantoin (From Allergy ALGY-Anaphy Verified 12/27/24 11:16 Macrobid) laxis Review of Systems General: Reports: 10 or more systems reviewed and unremarkable except in HPI and below Const: Denies: fever(s) or chills Card: Denies: chest pain Resp: Denies: dyspnea or productive cough GI: Denies: abdominal pain, nausea, vomiting or diarrhea : Denies: flank pain Musc: Reports: extremity pain (left 4th toe/foot) and extremity swelling (left 4th toe/foot); Denies: neck pain, back pain, joint pain, joint swelling, joint redness, joint warmth, limited range of motion or muscle weakness Skin/Breast: Denies: rash Neuro: Denies: headache(s), numbness in extremities or weakness in extremities PFSH ED PFSH: Medical History Dental cavity Social History Smoking and tobacco/nicotine status: current some day tobacco/nicotine user Alcohol intake: never Substance/Drug Use: never Physical Exam Const: COMMON NORMALS: no acute distress, patient oriented x3, no limitations, healthy appearing, alert and well nourished HENMT: COMMON NORMALS: normocephalic and atraumatic HEAD & SCALP: normocephalic and atraumatic Neck/C-Spine: COMMON NORMALS: full ROM, supple and no meningeal signs Extremity: COMMON NORMALS: full ROM, capillary refill normal and no clubbing, cyanosis or edema NARRATIVE EXTREMITY EXAM: Tender to palpation to left fourth toe, where there is swelling noted. No obvious deformity at this time. Mild tenderness to palpation extending proximally into the dorsum of the foot. Normal ankle examination. Neuro: COMMON NORMALS: patient oriented x3, moves all extremities, no focal motor deficits and no sensory deficits noted SENSORIUM/ORIENTATION: Yes alert MENINGEAL SIGNS: Yes no meningeal signs Skin: COMMON NORMALS: no rashes or lesions noted GENERAL SKIN EXAM: no rashes or lesions noted Course Vital Signs: Vital signs: Vital Signs Temperature 98.1 F 12/27/24 11:11 Pulse Rate 75 12/27/24 11:11 Blood Pressure 171/106 12/27/24 11:11 Pulse Oximetry 100 12/27/24 11:11 Oxygen Delivery Me thod Room Air 12/27/24 11:11 MDM - Extremity (Nontraumatic) Medical Decision Making Patient presented after a fall, injuring her left foot. Tender to palpation with swelling to left fourth toe, where x-ray is revealing a fracture. She will be placed in a walking boot and referred to podiatry. Neurovascular status is intact, she deny needing pain medications here. XR interpretation done by ED provider, pending radiology final review ED provider radiology interpretation(s): X-ray left foot showing fracture to proximal phalanx of left fourth toe. Discharge Plan Discharge Patient Disposition: Home Clinical Impression: Closed fracture of proximal phalanx of toe of left foot Condition: Stable Prescriptions: No Action (DME) right wrist fast form brace See Rx Instructions .Route .MEDSUPPLY Qty: 1 0RF Rx Instructions: As directed cyclobenzaprine 5 mg tablet 5 mg PO TID PRN (Reason: muscle spasm) Qty: 14 0RF amoxicillin 500 mg Capsule 500 mg PO TID potassium chloride 10 mEq capsule, extended release 10 meq PO DAILY lisinopril 20 mg tablet 20 mg PO DAILY amlodipine 5 mg tablet 5 mg PO DAILY estradiol 1 mg tablet 1 mg PO DAILY cyanocobalamin (vitamin B-12) 1,000 mcg/mL solution 1,000 mcg IM Q30D hydrochlorothiazide 12.5 mg capsule 12.5 mg PO DAILY Vitamin C 100 mg Tablet 100 mg PO DAILY vitamin B complex Tablet 1 tab PO DAILY Vitamin D3 10 mcg (400 unit) Tablet 10 mcg PO DAILY Percocet 5-325 mg tablet 1 tab PO Q8H PRN (Reason: pain) Qty: 9 0RF Discharge Orders: Discharge ED (Routine); Ordered 12/27/24 Ordered By: Brent Miguel Other Ambulatory Orders: DME: Miscellaneous (Order) Location: None Selected Ordered By: Brent Miguel Referrals: Joellen Yuan NP [Primary Care Provider, Nurse Practitioner] Patient Instructions: Patient Portal & Krzysztof Instructions Activity Restrictions/Additional Instructions: Foot Fracture Discharge Instructions You have a broken bone in your left foot (the fourth toe). You are wearing a walking boot to help protect and heal your foot. - Walking and Activity: You may walk in the boot as tolerated, but avoid putting too much weight on your foot if it causes pain. The boot helps keep your foot stable and reduces pressure while you heal. - Boot Care: Wear the boot at all times when walking or standing. Remove it only for bathing or sleeping, unless told otherwise by your doctor. - Pain Control: Take pain medicine as directed. Memu-xdl-boijvjg options like acetaminophen or ibuprofen can help with discomfort. - Swelling and Elevation: Swelling is common. Rest and keep your foot raised above heart level when sitting or lying down to help reduce swelling. - Ice: You may use an ice pack (wrapped in a towel) on your foot for 15-20 minutes at a time, several times a day, especially in the first few days. - Check Your Foot: Watch for signs of problems, such as increased pain, numbness, tingling, color changes, or if your toes look pale or blue. If you notice these, contact your doctor right away. - Follow-Up: You will be referred to a instructor robotics (outpatient coding specialist) for follow-up care. They will check your healing and decide when you can stop using the boot or start more activity. - Healing Time: Most toe fractures heal in about 4-6 weeks. Your instructor robotics will let you know when it is safe to return to normal activities. - Complications: Rarely, problems like infection, arthritis, or the bone not healing correctly can happen. Let your doctor know if you have fever, redness, or worsening pain. - When to Seek Help: Go to the emergency room if you have severe pain, cannot move your toes, notice severe swelling, or if your foot looks very different. Questions? If you have any questions or concerns, contact your healthcare provider. Stand Alone Forms: Work/School Release Print Language: New Zealander Coding Level of Care Code ED Epic [facility] Analyst for [facility] Fwd Documented by User: Edis Norwood DO 12/27/24 12:01 HPI - Extremity Problem General: Chief complaint: Extremity Injury, Lower Stated complaint: L foot pain Time Seen by Provider: 12/27/24 11:09 Related Data Home Medications ?Medication ?Instructions ?Recorded ?Confirmed amlodipine 5 mg tablet 5 mg PO DAILY 09/01/21 08/26/24 amoxicillin 500 mg capsule 500 mg PO TID 09/01/21 08/26/24 ascorbic acid (vitamin C) 100 mg 100 mg PO DAILY 09/01/21 08/26/24 tablet (Vitamin C) cholecalciferol (vitamin D3) 10 10 mcg PO DAILY 09/01/21 08/26/24 mcg (400 unit) tablet (Vitamin D3) cyanocobalamin (vitamin B-12) 1,000 mcg IM Q30D 09/01/21 08/26/24 1,000 mcg/mL injection solution estradiol 1 mg tablet 1 mg PO DAILY 09/01/21 08/26/24 hydrochlorothiazide 12.5 mg capsule 12.5 mg PO DAILY 09/01/21 08/26/24 lisinopril 20 mg tablet 20 mg PO DAILY 09/01/21 08/26/24 potassium chloride 10 mEq 10 meq PO DAILY 09/01/21 08/26/24 capsule,extended release vitamin B complex 1 tab PO DAILY 09/01/21 08/26/24 Previous Rx's ?Medication ?Instructions ?Recorded oxycodone-acetaminophen 5 mg-325 1 tab PO Q8H PRN pain #9 tabs 09/01/21 mg tablet (Percocet) cyclobenzaprine 5 mg tablet 5 mg PO TID PRN muscle spasm #14 09/22/23 tabs right wrist fast form brace #1 ea 07/02/24 Allergies Allergy/AdvReac Type Severity Reaction Status Date / Time Alpha-Gal Allergy ALGY-Anaphy Verified 12/27/24 11:16 (Trtfgdwlp-Stare-6,3-Gala laxis Latex, Natural Rubber Allergy ALGY-Anaphy Verified 12/27/24 11:16 laxis nitrofurantoin (From Allergy ALGY-Anaphy Verified 12/27/24 11:16 Macrobid) laxis [facility] ED PFSH: Medical History Dental cavity Social History Smoking and tobacco/nicotine status: current some day tobacco/nicotine user Alcohol intake: never Substance/Drug Use: never Course Vital Signs: Vital signs: Vital Signs Temperature 98.1 F 12/27/24 11:11 Pulse Rate 75 12/27/24 11:11 Blood Pressure 171/106 12/27/24 11:11 Pulse Oximetry 100 12/27/24 11:11 Oxygen Delivery Me thod Room Air 12/27/24 11:11 MDM - Extremity (Nontraumatic) Medical Decision Making Patient presented after a fall, injuring her left foot. Tender to palpation with swelling to left fourth toe, where x-ray is revealing a fracture. She will be placed in a walking boot and referred to podiatry. Neurovascular status is intact, she deny needing pain medications here. Chart reviewed and patient discussed with midlevel. Agree with assessment and plan. Discharge Plan Discharge Patient Disposition: Home Clinical Impression: Closed fracture of proximal phalanx of toe of left foot Condition: Stable Prescriptions: No Action (DME) right wrist fast form brace See Rx Instructions .Route .MEDSUPPLY Qty: 1 0RF Rx Instructions: As directed cyclobenzaprine 5 mg tablet 5 mg PO TID PRN (Reason: muscle spasm) Qty: 14 0RF amoxicillin 500 mg Capsule 500 mg PO TID potassium chloride 10 mEq capsule, extended release 10 meq PO DAILY lisinopril 20 mg tablet 20 mg PO DAILY amlodipine 5 mg tablet 5 mg PO DAILY estradiol 1 mg tablet 1 mg PO DAILY cyanocobalamin (vitamin B-12) 1,000 mcg/mL solution 1,000 mcg IM Q30D hydrochlorothiazide 12.5 mg capsule 12.5 mg PO DAILY Vitamin C 100 mg Tablet 100 mg PO DAILY vitamin B complex Tablet 1 tab PO DAILY Vitamin D3 10 mcg (400 unit) Tablet 10 mcg PO DAILY Percocet 5-325 mg tablet 1 tab PO Q8H PRN (Reason: pain) Qty: 9 0RF Discharge Orders: Discharge ED (Routine); Ordered 12/27/24 Ordered By: Brent Miguel Other Ambulatory Orders: DME: Miscellaneous (Order) Location: None Selected Ordered By: Brent Miguel Referrals: Joellen Yuan NP [Primary Care Provider, Nurse Practitioner] Patient Instructions: Patient Portal & Krzysztof Instructions Activity Restrictions/Additional Instructions: Foot Fracture Discharge Instructions You have a broken bone in your left foot (the fourth toe). You are wearing a walking boot to help protect and heal your foot. - Walking and Activity: You may walk in the boot as tolerated, but avoid putting too much weight on your foot if it causes pain. The boot helps keep your foot stable and reduces pressure while you heal. - Boot Care: Wear the boot at all times when walking or standing. Remove it only for bathing or sleeping, unless told otherwise by your doctor. - Pain Control: Take pain medicine as directed. Soxr-vri-xoqyciq options like acetaminophen or ibuprofen can help with discomfort. - Swelling and Elevation: Swelling is common. Rest and keep your foot raised above heart level when sitting or lying down to help reduce swelling. - Ice: You may use an ice pack (wrapped in a towel) on your foot for 15-20 minutes at a time, several times a day, especially in the first few days. - Check Your Foot: Watch for signs of problems, such as increased pain, numbness, tingling, color changes, or if your toes look pale or blue. If you notice these, contact your doctor right away. - Follow-Up: You will be referred to a instructor robotics (outpatient coding specialist) for follow-up care. They will check your healing and decide when you can stop using the boot or start more activity. - Healing Time: Most toe fractures heal in about 4-6 weeks. Your instructor robotics will let you know when it is safe to return to normal activities. - Complications: Rarely, problems like infection, arthritis, or the bone not healing correctly can happen. Let your doctor know if you have fever, redness, or worsening pain. - When to Seek Help: Go to the emergency room if you have severe pain, cannot move your toes, notice severe swelling, or if your foot looks very different. Questions? If you have any questions or concerns, contact your healthcare provider. Stand Alone Forms: Work/School Release Print Language: New Zealander Coding Level of Care Code ED Epic [facility] Analyst for Alonso Cheung
--- NOTE | 2024-12-27 12:00 | PC.NURSE ---
Pt received a CAM BOOT womens from kenn[facility] Bustillo.
--- NOTE | 2024-12-29 16:21 | PC.NURSE ---
Podiatry referral sent.
== END 2024-12-27 12:01 | disposition home or self-care (01) ==
PROVIDERS: Emergency Provider Physician Assistant; PCP Nurse Practitioner Family
DX: S92.512A Displaced fracture of proximal phalanx of left lesser toe(s), initial encounter for closed fracture (principal); W10.9XXA Fall (on) (from) unspecified stairs and steps, initial encounter
CPT/HCPCS: 73630; 99283

== ENCOUNTER → 2024-12-28 13:26 | Outpatient (BNVA) | payer BC, SELFPAY | PROVIDERS: PCP Nurse Practitioner Family; Visit Provider Podiatrist Foot & Ankle Surgery | DX: M25.572 Pain in left ankle and joints of left foot (principal) | CPT/HCPCS: 73610 ==

== ENCOUNTER → 2025-01-12 07:20 | Outpatient (BNVA) | payer BC, SELFPAY | PROVIDERS: PCP Nurse Practitioner Family; Visit Provider Podiatrist Foot & Ankle Surgery | DX: S92.912A Unspecified fracture of left toe(s), initial encounter for closed fracture (principal); X58.XXXA Exposure to other specified factors, initial encounter | CPT/HCPCS: 73630 ==

== ENCOUNTER → 2025-01-27 07:28 | Outpatient (BNVA) | payer BC, SELFPAY | PROVIDERS: PCP Nurse Practitioner Family; Visit Provider Podiatrist Foot & Ankle Surgery | DX: S92.912A Unspecified fracture of left toe(s), initial encounter for closed fracture (principal); X58.XXXA Exposure to other specified factors, initial encounter | CPT/HCPCS: 73630 ==